=== PATIENT | male | born 1950 | race African-American/Black ===

== ENCOUNTER 2020-04-02 15:33 | Observation (INO) | payer OTHER ==
[2020-04-02] VITALS (10 sets, daily range): BP systolic 115–139; BP diastolic 76–98
[~2020-04-02] VITALS: Ht 188 cm; Wt 81.6 kg
[~2020-04-02 15:33] MED LIST: AMLODIPINE BESYL5 MG PO; ASPIRIN EC81 M1 PO; HYDROCHLOROTHIA25 M1 PO; HYDROCODON-ACE1 EAC1 PO; HYDROCODON-ACE1 EAC7; LIPITOR20 MG PO; MELOXICAM7.5 MG PO; ZOCOR 20 MG TAB20 M1 PO
[2020-04-02 16:04] LABS: ABSOLUTE NEUTROPHILS 8.6 thou/uL (1.4-8.2); EOSINOPHILS 1.9 % (0.0-3.0); HEMATOCRIT 45.3 % (42.0-52.0); MCHC 33.1 g/dL (28.0-37.0); MCV 90.6 fL (80.0-100.0); MONOCYTES 6.6 % (1.0-8.0); POLYS 77.5 % (36.0-66.0); RDW 13.8 % (10.5-14.5); WBC 11.1 thou/uL (4.0-11.0)
[2020-04-02 16:10] LABS: URINE BILIRUBIN NEGATIVE (Negative); URINE BLOOD TRACE (Negative); URINE CLARITY CLEAR; URINE COLOR YELLOW; URINE GLUCOSE-RANDOM* NEGATIVE (Negative); URINE KETONES NEGATIVE (Negative); URINE LEUKOCYTES-REFLEX NEGATIVE (Negative); URINE NITRITE-REFLEX NEGATIVE (Negative); URINE PROTEIN (DIPSTICK) NEGATIVE (Negative); URINE UROBILINOGEN 0.2 E.U./dl (0.2-1.0)
[2020-04-02 16:23] LABS: ANION GAP 9 mmol/L (7-16); BUN 20 mg/dL (7-18); CALCIUM 9.9 mg/dL (8.5-10.1); CHLORIDE 102 mmol/L (98-107); CO2 30 mmol/L (21-32); CREATININE 1.5 mg/dL (0.7-1.3); GLUCOSE 102 mg/dL (74-106); POTASSIUM 3.3 mmol/L (3.5-5.1); SODIUM 141 mmol/L (136-145)
[2020-04-02 16:33] LABS: ALBUMIN 4.3 g/dL (3.4-5.0); SGOT 33 U/L (15-37); SGPT 49 U/L (30-65); TOTAL BILIRUBIN 0.5 mg/dL (0.2-1.0); TOTAL PROTEIN 8.1 g/dL (6.4-8.2); TROPONIN-I <0.06 ng/mL (<0.06)
[2020-04-02 16:44] LABS: PLATELET COUNT 104 thou/uL (150-400)
--- NOTE | 2020-04-02 18:00 | EKG ---
[facility] [place] [address] ELECTROCARDIOGRAM REPORT Name: DENTON ZENG Room #: 160-1 ADM IN M.R.#: [id number] Admission: 04/02/20 Attend Phys: Pete Lema MD, Discharge: Date of : 54 Report #: [id number] THIS REPORT FOR: cc: Wilbur Driver James A. DO Lundgren, Craig H. 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1950 Requested By: Irene Da Silva Order Number: [id number] MD: Pete Lema Measurements Intervals [place] Rate: 87 P: 49 OK: 149 QRS: 10 QRSD: 100 T: 225 QT: 358 QTc: 431 Interpretive Statements Sinus rhythm Multiple premature complexes, vent & supraven RSR' in V1 or V2, probably normal variant Repol abnrm suggests ischemia Compared to ECG 10/07/2012 20:54:47 Premature ventricular and supraventricular complexes now present ST and T wave abnormality is now present Electronically Signed On 04-02-2020 18:00:00 BENZENE OPERATOR by Pete Lema [email or web address] <ELECTRONICALLY SIGNED> By: Pete Lema MD, [facility] 04/02/20 1800 1640 1640 Pete Lema MD, FAC /EPI
--- NOTE | 2020-04-02 18:09 | CATHLAB ---
[facility] [place] [address] INVASIVE PROCEDURE REPORT Name: DENTON ZENG Room #: 212-P ADM IN M.R.#: [id number] Admission: 04/02/20 Attend Phys: Pete Lema MD, Discharge: Date of : 54 Report #: [id number] THIS REPORT FOR: cc: Wilbur Driver James A. DO Lundgren, Craig H. MD [facility] ~ APPROVED REPORT Study performed: 04/02/2020 16:03:19 Patient Details Patient Status: In-Patient Room #: The patient is a 69 year-old male Event Personnel Pete Lema Outbound Supervisor, Go Acosta RN, Rubi Calderon RTEmilee Scrub, Gabby Valladaresub, Juany Soto Monitor Procedures Performed Art Access - R femoral artery* 55666 Initial Mod Sed Same Phys/QHP Gr5y 097284 38692 Mod Sed Same Phys/QHP Ea 199068 Left Heart Cath w/or w/o Coronaries [id number] [facility] Supravalvular Aortography Injection 0797912 ISVA Hemostasis w/ Mynx Indication Chest pain Procedure Narrative The patient was brought urgently to the Cardiac Catheterization Laboratory and was prepped and draped in a sterile manner. The Right Groin^ was infiltrated with 1% Lidocaine subcutaneous anesthesia. A PINNACLE 6FR Sheath #[id number] sheath was inserted into the RFA^. Coronary angiography was performed using coronary diagnostic catheters. The right coronary system was accessed and visualized with a AL 2 catheter. The left coronary system was accessed and visualized with a AL 2 catheter. The left ventricle was accessed and visualized with a Pigtail catheter. Left ventriculogram was performed in TYLER projection. An aortogram of the ascending aorta was performed. Closure device was deployed with a 6 Fr Mynx. The patient tolerated the procedure well and there were no complications associated with the procedure. Intraoperative Conscious Sedation [address] [address] INVASIVE PROCEDURE REPORT Name: KARRIDENTON GUTIERREZ Room #: 212-P [facility] IN ..#: [id number] Admission: 04/02/20 Attend Phys: Pete Lema, Discharge: Date of : 54 Report #: [id number] Sedation start time: 16:18 Case end Time: 17:20 Fentanyl 100 mcg Versed 1.5 mg Fluoro Time: 19.37 minutes Dose: DAP 13991.00 cGycm2 1418 mGy Contrast Type and Amount: Visipaque 300 ml Coronary Angiography The patient's coronary anatomy is co- dominant. Alutiiq Artery Percent Stenosis Multiple catheters were used in an attempt to selectively engage the left main. Ultimately a long sheath was placed at the groin due to tortuosity of the aortoiliac system. An AL 2 catheter was used to selectively engage the left main Diagnostic Cath Left Main Left main was large and angiographically normal. LAD Minimal 10-20% proximal LAD plaquing. The LAD was a large vessel that extended to the inferior apex. Diagonal 1 Moderate sized first diagonal branch, angiographically normal Diagonal 2 Small to moderate second diagonal branch, angiographically normal Circumflex The circumflex was comprised of a large bifurcating single marginal branch. Mild 10-20% proximal circumflex plaquing OM1 Large bifurcating single marginal branch, angiographically normal Right Coronary The right coronary ostium had its origin high and probably in the left coronary cusp. An AL modified catheter was used to engage the right coronary. Left Ventriculography The left ventricle is normal in size with normal contractility. The left ventricular ejection fraction is estimated to be 65-70%. Left ventricular wall motion abnormalities are not present. There is no mitral insufficiency. Supravalvular aortography demonstrated normal caliber ascending aorta. Aortic valve appeared to be trileaflet. Trace aortic insufficiency. Hemodynamics The aortic pressure is 147/90 mmHg with a mean of 116 mmHg. The [facility] [address] [place] [address] INVASIVE PROCEDURE REPORT Name: DENTON ZENG Room #: 212-P [facility] IN M.R.#: [id number] Admission: 04/02/20 Attend Phys: Pete Lema, Discharge: Date of : 54 Report #: [id number] ventricular pressure is 142/8 mmHg with a mean of mmHg. The left ventricular end diastolic pressure is 22 mmHg. Conclusion 1. Tortuous aortoiliac system. No evidence of proximal ascending aorta dilatation or aneurysm. No dissection 2. Probably trileaflet aortic valve. Trace aortic insufficiency. 3. Normal left main 4. Minimal plaquing of the LAD and circumflex arteries. 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 Codominant and angiographically normal right coronary Recommendations [facility] <ELECTRONICALLY SIGNED> By: Pete Lema MD, FACC 04/02/201807 07 07 Pete Lema MD, FACC /INF
--- NOTE | 2020-04-02 18:43 | NUR ---
PT ARRIVED TO UNIT AT APPROX 1755. PT ALERT AND ORIENTED.VSS. C/O PAIN IN BACK MANAGED WITH PO PAIN MEDS. PT ON INSTRUCTED BEDREST POST PROCEDURE. POST OP VITALS INITIATED. ADMISSION COMPLETE. TELE STRIP PRINTED AND DOCUMENTED. POST CATH VITALS CHARTED IN INTERVENTION. PT DENIES NEEDS/CONCERNS AT THIS TIME. WILL CONT TO MONITOR AND FOLLOW POC. WILL PASS ON REPORT TO RUSTY RN.
[2020-04-03 04:25] VITALS: BP 124/79
[2020-04-03 06:05] LABS: CALCIUM 9.4 mg/dL (8.5-10.1); CREATININE 1.3 mg/dL (0.7-1.3); MAGNESIUM 2.1 mg/dL (1.8-2.4); POTASSIUM 3.3 mmol/L (3.5-5.1)
[2020-04-03 06:09] LABS: CHOLESTEROL 105 mg/dL (<200); HDL CHOLESTEROL 33 mg/dL (>40); LDL CHOLESTEROL 51 mg/dL (<100); TC:HDL 3.2 Ratio (Not establshd); TRIGLYCERIDE 105 mg/dL (<150); VLDL 21 mg/dL (<40)
[2020-04-03 06:20] LABS: SERUM ASSESSMENT Clear
--- NOTE | 2020-04-03 06:49 | NUR ---
PATIENT OFF BEDREST AT 2100.VITAL SIGNS STABLE.DENIES PAIN.RIGHT GROIN C/D/I.NO HEMATOMA NOR BLEEDING NOTED.MONITOR SHOWS SR.POC CONTINUED.
[2020-04-03] MEDS ORDERED: KLOR-CON 1010 MEQ PO (07:13)
--- NOTE | 2020-04-03 07:39 | EKG ---
[facility] Kath [address]ess [facility] [place] [address] ELECTROCARDIOGRAM REPORT Name: DENTON ZENG Room #: 212-P ADM IN M.R.#: [id number] Admission: 04/02/20 Attend Phys: Pete Lema MD, Discharge: Date of : 54 Report #: [id number] THIS REPORT FOR: cc: Wilbur Driver James A. 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1950 Requested By: Pete Lema Order Number: [id number] MD: Dion Curran Measurements Intervals [place] Rate: 57 P: 28 TN: 131 QRS: -13 QRSD: 108 T: -79 QT: 447 QTc: 436 Interpretive Statements Sinus rhythm RSR' in V1 or V2, probably normal variant Borderline repolarization abnormality Compared to ECG 04/02/2020 16:40:45 Possible ischemia no longer present Electronically Signed On 04-03-2020 7:38:[address] by Dion Curran [email or web address] <ELECTRONICALLY SIGNED> By: Dion Curran MD, FACC 04/03/20737 9 9 Dion Curran MD, FAC /EPI
[2020-04-03 07:41] VITALS: BP 130/81
[2020-04-03] MEDS ORDERED: AMLODIPINE BESY10 MG PO (07:41)
[2020-04-03 07:45] VITALS: BP 130/81
--- NOTE | 2020-04-03 08:47 | D ---
[facility] [place] [address] DISCHARGE SUMMARY Name: DENTON ZENG Room #: 212-P ADM IN M.R.#: [id number] Admission: 04/02/20 Attend Phys: Pete Lema MD, Discharge: Date of : 54 Report #: [id number] THIS REPORT FOR: cc: Wilbur Driver,Pete Parker MD [facility] ~ THIS REPORT FOR: //name// CC: Pete Driver DO DISCHARGE DIAGNOSES: 1. Tachycardia, etiology unknown. 2. Minimal coronary disease by angiography; normal left ventricular systolic function. 3. Hypertension. 4. Dyslipidemia. 5. Osteoarthritis. HISTORY OF PRESENT ILLNESS: For the complete details of the history of present illness, see dictated history and physical. Briefly, the patient is a 69-year-old gentleman with history of hypertension, remote tobacco dependency and dyslipidemia. 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 He now presents with 30 minutes of racing heartbeat with associated fatigue and lightheadedness. His symptoms resolved by the time he got to the Emergency Department. HOSPITAL COURSE: The patient was seen in the Emergency Department where an EKG demonstrated ST segment depression in diffuse leads of about 1 mm. This was in the absence of specific symptoms at the time. Code STEMI was called. I responded to this. Coronary angiography, the details of which can be found under separate heading detailed mild plaquing in his coronary tree. Left ventricular systolic function was normal. The aorta was extremely tortuous. Troponin levels were 0. Potassium levels were low at 3.3 and supplemented. Lipid profile demonstrated a total cholesterol of 105, triglycerides 105, HDL 33, LDL 51. Symptoms are suspicious for a primary rhythm abnormality. Unfortunately, no rhythm disturbances were seen throughout his hospital stay. Arrangements were made for an outpatient 2-week event recorder. Echocardiography as an outpatient will be arranged with a followup with myself. DISCHARGE MEDICATIONS: Include amlodipine 10 mg daily, aspirin 81 mg daily, Flonase, hydrochlorothiazide 25 mg daily, potassium 10 mEq daily, tramadol and hydrocodone as needed. [address] [address] DISCHARGE SUMMARY Name: DENTON ZENG Room #: [facility] IN M.R.#: [id number] Admission: 04/02/20 Attend Phys: Pete Lema MD, Discharge: Date of : 54 Report #: [id number] DISCHARGE DIET: Low fat, low cholesterol, heart healthy diet. DISCHARGE ACTIVITY: As instructed post-catheterization. DISCHARGE FOLLOWUP: With myself 4wks after a [address] Driver directed. Medicines were reconciled. DISCHARGE CONDITION: Stable and improved <ELECTRONICALLY SIGNED> By: Pete Lema MD, [facility] 04/03/20 0847 0734 0750 Pete Lema MD, [facility] /nt
[2020-04-03 10:29] VITALS: BP 130/81
--- NOTE | 2020-04-03 16:36 | NUR ---
PT CARE ASSUMED AT 0700. ASSESSMENT CHARTED. MEDICATION CHARTED. LAC IV. SINUS RHYTHM. RT GROIN, C/D/I. UP AD SAMY. PT IS TO BE DISCHARGED. TELEMETRY D/C'D. IV D/C'D. DISCHARGE PAPERWORK SIGNED; GARRISON SHEET SIGNED.
== END 2020-04-03 11:57 | disposition home or self-care (01) ==
LOC: ER 15:33 → 2N 16:20 → TBACV 16:20 → 2N 18:06
PROVIDERS: Nurse Practitioner; Student in an Organized Health Care Education/Training Program; ADMIT Internal Medicine; ATTEND Internal Medicine
DX: R00.0 Tachycardia, unspecified (principal); I25.10 Atherosclerotic heart disease of native coronary artery without angina pectoris; I10 Essential (primary) hypertension; E78.5 Hyperlipidemia, unspecified; M19.90 Unspecified osteoarthritis, unspecified site; I21.4 Non-ST elevation (NSTEMI) myocardial infarction; R01.1 Cardiac murmur, unspecified; G89.29 Other chronic pain; Z87.891 Personal history of nicotine dependence; Z79.899 Other long term (current) drug therapy
CPT/HCPCS: 10081

== ENCOUNTER → 2020-04-30 | Outpatient (CLI) | payer OTHER ==
[~2020-04-30] MED LIST changes: +AMLODIPINE BESY10 MG PO; +KLOR-CON 1010 MEQ PO
== END ==
LOC: SJCVCIMAG 08:56
PROVIDERS: ATTEND Internal Medicine
DX: I08.0 Rheumatic disorders of both mitral and aortic valves (principal); R94.31 Abnormal electrocardiogram [ECG] [EKG]; R00.1 Bradycardia, unspecified; I10 Essential (primary) hypertension; I47.1 Supraventricular tachycardia; E78.5 Hyperlipidemia, unspecified; I25.10 Atherosclerotic heart disease of native coronary artery without angina pectoris; Z79.82 Long term (current) use of aspirin; Z79.899 Other long term (current) drug therapy; Z87.891 Personal history of nicotine dependence